=== PATIENT | male | born 1960 | race Caucasian/White ===

== ENCOUNTER 2021-10-30 21:39 | Emergency (ER) | payer OTHER ==
[2021-10-30 23:42] LABS: BASOPHIL 0.2 % (0-2); EOSINOPHIL 0 % (0-5); HCT 43.7 % (42.0-52.0); HGB 14.5 g/dl (13.2-18.0); LYMPHOCYTE 3.3 % (15-48); MCH 30.2 pg (25.0-31.0); MCHC 33.2 g/dL (32.0-36.0); MONOCYTE 6.3 % (0-12); MPV 10.3 fL (6.0-9.5); NEUTROPHIL 89.6 % (41-80); NRBC 0; PLT 273 K/uL (150-400); RDW 13.2 % (11.5-14.0); WBC 21.5 K/uL (4.0-10.5)
[2021-10-31] LABS: ALBUMIN 3.5 g/dL (3.4-5.0); BILIRUBIN - TOTAL 0.5 mg/dL (0.2-1.0); BUN/CREAT RATIO (CALC) 15.3 RATIO; CREATININE 1.37 mg/dL (0.67-1.17); GLOBULIN (CALCULATION) 3.3 g/dL; POTASSIUM 3.8 mmol/L (3.5-5.1); TOTAL PROTEIN 6.8 g/dL (6.4-8.2)
[2021-10-31 01:07] LABS: BILIRUBIN NEGATIVE (NEGATIVE); BLOOD 3+ Ery/uL (NEGATIVE); CLARITY CLEAR (CLEAR); COLOR YELLOW (YELLOW); GLUCOSE (U) NORMAL (NORMAL); LEUKOCYTES NEGATIVE Leu/uL (NEGATIVE); NITRITE NEGATIVE (NEGATIVE); PROTEIN NEGATIVE (NEGATIVE); SPECIFIC GRAVITY 1.025 (1.001-1.030); UROBILINOGEN 0.2 mg/dL (0.2-1.0)
[2021-10-31 01:29] LABS: BACTERIA TRACE; URINARY WBC RARE
[2021-10-31] MEDS ORDERED: NORCO 5-325 TA1 EACH PO (01:39)
[2021-10-31] MEDS ORDERED: ONDANSETRON ODT4 MG PO (01:39)
[2021-10-31] MEDS ORDERED: FLOMAX0.4 MG PO (01:39)
== END 2021-10-31 02:01 | disposition home or self-care (01) ==
LOC: FER 21:39
PROVIDERS: Nurse Practitioner Family
DX: N13.2 Hydronephrosis with renal and ureteral calculous obstruction (principal); I10 Essential (primary) hypertension; Z28.310 Unvaccinated for COVID-19
CPT/HCPCS: 36415; 80053; 81001; 85025; 87088; J1885; J2405; J7030; Q0169